=== PATIENT | female | born 1950 | race Caucasian/White ===

== ENCOUNTER 2021-01-12 09:17 | Emergency (ER) | payer MEDICARE, OTHER ==
[~2021-01-12] VITALS: Ht 157.5 cm; Wt 61.2 kg
[2021-01-12] MEDS ORDERED: TETANUS/DIPHTHERIA TOX ADULT 0.5 ML SYR IM STA (09:49)
[2021-01-12] MEDS ORDERED: LIDOCAINE HCL 2% LOCAL 20 ML VIAL INJ STA (09:49)
[2021-01-12] MEDS ORDERED: ACETAMINOPHEN500 MG PO (09:54)
[2021-01-12] MEDS ORDERED: CLINDAMYCIN HC150 MG PO (09:54)
[2021-01-12] MEDS ORDERED: TETANUS/DIPHTHERIA TOX ADULT 0.5 ML SYR ONE (10:31)
== END 2021-01-12 11:12 | disposition home or self-care (01) ==
LOC: FSED 09:36
DX: S05.41XA Penetrating wound of orbit with or without foreign body, right eye, initial encounter (principal); S80.211A Abrasion, right knee, initial encounter; W01.0XXA Fall on same level from slipping, tripping and stumbling without subsequent striking against object, initial encounter; Y93.02 Activity, running; Y92.89 Other specified places as the place of occurrence of the external cause; E78.5 Hyperlipidemia, unspecified; Z98.0 Intestinal bypass and anastomosis status
CPT/HCPCS: 90471; 90714; 99283

== ENCOUNTER 2021-01-22 14:15 | Emergency (ER) | payer MEDICARE ==
[~2021-01-22] VITALS: Ht 157.5 cm; Wt 62.4 kg
[~2021-01-22 14:15] MED LIST: ACETAMINOPHEN500 MG PO; CLINDAMYCIN HC150 MG PO
[2021-01-22] MEDS ORDERED: OMEPRAZOLE40 MG PO (16:35)
[2021-01-22] MEDS ORDERED: CRESTOR10 MG PO (16:35)
== END 2021-01-22 14:35 | disposition home or self-care (01) ==
LOC: FSED 14:33
DX: Z48.02 Encounter for removal of sutures (principal)
CPT/HCPCS: S0630

== ENCOUNTER 2022-04-15 12:53 | Inpatient (IN) | payer MEDICARE ==
[~2022-04-15] VITALS: Ht 157.5 cm; Wt 62.1 kg
[~2022-04-15 12:53] MED LIST changes: +CRESTOR10 MG PO; +OMEPRAZOLE40 MG PO
[2022-04-15] MEDS ORDERED: ONDANSETRON HCL INJ 2MG/ML 2ML 2 MG/ML VIAL IV STA ×2 (13:54→15:12)
[2022-04-15] MEDS ORDERED: SODIUM CHLORIDE 0.9% 1000ML 1,000 ML IV SCH ×3 (14:00→18:45)
[2022-04-15] MEDS ORDERED: KETOROLAC TROMETHAMINE 30 MG/ML VIAL IV STA (14:02)
[2022-04-15] MEDS ORDERED: KETOROLAC TROMETHAMINE 30 MG/ML VIAL ONE (14:43)
[2022-04-15] MEDS ORDERED: ONDANSETRON HCL INJ 2MG/ML 2ML 2 MG/ML VIAL ONE ×2 (14:43→15:28)
[2022-04-15] MEDS ORDERED: CEFTRIAXONE 1 GM VIAL ONE (16:44)
[2022-04-15] MEDS ORDERED: PROMETHAZINE 25MG/ NS 50ML (IV) IV ONE (16:45)
[2022-04-15] MEDS ORDERED: PROMETHAZINE HCL (IM) 25 MG/ML VIAL IM ONE (16:54)
[2022-04-15] MEDS ORDERED: SODIUM CHLORIDE 0.9% 1000ML 1,000 ML ONE ×2 (16:54→21:47)
[2022-04-15] MEDS ORDERED: ONDANSETRON HCL INJ 2MG/ML 2ML 2 MG/ML VIAL IV PRN (18:45)
[2022-04-15] MEDS ORDERED: HYDROMORPHONE 2MG/ML 2 MG/ML ML IV PRN (18:45)
[2022-04-15] MEDS ORDERED: KETOROLAC TROMETHAMINE 30 MG/ML VIAL IV PRN (19:30)
[2022-04-15] MEDS ORDERED: PROMETHAZINE 25MG/ NS 50ML (IV) IV PRN (19:30)
[2022-04-15 21:08] VITALS: BP 112/70
[2022-04-15] MEDS: TAMSULOSIN HCL 0.4 MG CAP PO SCH (21:38)
[2022-04-15] MEDS ORDERED: LETROZOLE2.5 MG PO (21:51)
[2022-04-15] MEDS ORDERED: ROSUVASTATIN CA10 MG PO (21:51)
[2022-04-15] MEDS ORDERED: FAMOTIDINE40 MG PO (21:51)
[2022-04-15] MEDS ORDERED: MELOXICAM7.5 MG PO (21:51)
[2022-04-15 22:01] VITALS: BP 112/70
[2022-04-15 22:03] VITALS: BP 112/70
[2022-04-15 23:59] VITALS: BP 115/73
[2022-04-16] VITALS (7 sets, daily range): BP systolic 96–119; BP diastolic 58–71
[2022-04-16] MEDS: SODIUM CHLORIDE 0.9% 1000ML 1,000 ML IV SCH ×2 (05:25→15:04)
[2022-04-16 07:38] LABS: BASOPHILS % 0.5 % (0.0-1.0); EOSINOPHILS % 0.3 % (0.0-6.0); HEMATOCRIT 39.2 % (34.2-44.1); HEMOGLOBIN 12.7 g/dL (12.0-16.0); LYMPHOCYTES # (AUTO) 1.1 (1.0-3.2); LYMPHOCYTES % 12.3 % (18.0-39.1); MEAN CORPUSCULAR HEMOGLOBIN 30.8 pg (28-32); MEAN CORPUSCULAR HGB CONC 32.4 g/dL (31-35); MEAN CORPUSCULAR VOLUME 94.9 fL (81-99); MONOCYTES % 10.9 % (4.4-11.3); NEUTROPHILS # (AUTO) 6.7 (2.1-6.9); NEUTROPHILS % 75.8 % (38.7-80.0); PLATELET COUNT 217 x10e3/uL (140-360); RED BLOOD COUNT 4.13 x10e6/uL (3.6-5.1); RED CELL DISTRIBUTION WIDTH 11.5 % (11.7-14.4)
[2022-04-16 08:42] LABS: ALBUMIN 2.9 g/dL (3.5-5.0); ALBUMIN/GLOBULIN RATIO 1.2 (0.8-2.0); ANION GAP 9.2 mmol/L (8-16); CALCIUM 7.9 mg/dL (8.4-10.2); CREATININE, SERUM 0.75 mg/dL (0.57-1.11); POTASSIUM 3.2 mmol/L (3.5-5.1)
[2022-04-16] MEDS ORDERED: MELOXICAM 7.5 MG TAB PO PRN (10:30)
[2022-04-16] MEDS ORDERED: POTASSIUM CHLORIDE 10MEQ EA PO ONE (11:15)
[2022-04-16] MEDS: TAMSULOSIN HCL 0.4 MG CAP PO SCH (21:37)
[2022-04-17] VITALS: BP 105/69
[2022-04-17] MEDS: SODIUM CHLORIDE 0.9% 1000ML 1,000 ML IV SCH ×3 (00:39→16:30)
[2022-04-17 04:00] VITALS: BP 116/83
[2022-04-17 05:44] LABS: BASOPHILS % 0.4 % (0.0-1.0); EOSINOPHILS # (AUTO) 0.1 (0.0-0.4); HEMOGLOBIN 13.6 g/dL (12.0-16.0); LYMPHOCYTES # (AUTO) 0.8 (1.0-3.2); LYMPHOCYTES % 16.7 % (18.0-39.1); MEAN CORPUSCULAR HEMOGLOBIN 30.6 pg (28-32); MEAN CORPUSCULAR HGB CONC 32.4 g/dL (31-35); MEAN CORPUSCULAR VOLUME 94.4 fL (81-99); MONOCYTES # (AUTO) 0.5 (0.2-0.8); MONOCYTES % 9.8 % (4.4-11.3); NEUTROPHILS # (AUTO) 3.2 (2.1-6.9); NEUTROPHILS % 69.9 % (38.7-80.0); PLATELET COUNT 248 x10e3/uL (140-360); RED BLOOD COUNT 4.45 x10e6/uL (3.6-5.1); RED CELL DISTRIBUTION WIDTH 11.3 % (11.7-14.4)
[2022-04-17 06:12] LABS: ANION GAP 13.5 mmol/L (8-16); CALCIUM 8.6 mg/dL (8.4-10.2); CREATININE, SERUM 0.68 mg/dL (0.57-1.11); POTASSIUM 3.5 mmol/L (3.5-5.1)
[2022-04-17] MEDS ORDERED: PANTOPRAZOLE SOD 40 MG TABEC PO SCH (07:30)
[2022-04-17] MEDS ORDERED: CRESTOR 10MG PO SCH (09:00)
[2022-04-17] MEDS ORDERED: FAMOTIDINE 20 MG TAB PO SCH (09:00)
[2022-04-17] MEDS ORDERED: NON-FORMULARY MEDICATION (Letrozole 2.5 MG) PO SCH (09:00)
[2022-04-17] MEDS ORDERED: SIMVASTATIN 40 MG TAB PO SCH (09:00)
[2022-04-17 09:55] VITALS: BP 121/91
[2022-04-17 10:58] VITALS: BP 121/91
[2022-04-17] MEDS ORDERED: ACETAMINOPHEN/CODEINE 300MG - 30MG TAB PO PRN (13:30)
[2022-04-17] MEDS ORDERED: PHENAZOPYRIDINE HCL 100 MG TAB PO PRN (13:30)
[2022-04-17] MEDS ORDERED: IOPAMIDOL 610MG/1ML 300 MG/ML VIAL IV ONE ×2 (13:32→14:07)
[2022-04-17 14:17] VITALS: BP 125/72
[2022-04-17] MEDS ORDERED: OXYBUTYNIN CHLORIDE 5 MG TAB PO SCH (15:00)
[2022-04-17] MEDS ORDERED: TYLENOL 3 PO (16:22)
[2022-04-17] MEDS ORDERED: DITROPAN XL5 MG PO (16:23)
[2022-04-17 17:12] VITALS: BP 111/55
[2022-04-18] MEDS ORDERED: DEXAMETHASONE SOD PHOS INJ 4 MG/ML SDV ONE (12:58)
[2022-04-18] MEDS ORDERED: SEVOFLURANE INHAL SOLN 250 ML PEN BTL ONE (12:58)
[2022-04-18] MEDS ORDERED: ONDANSETRON HCL INJ 2MG/ML 2ML 2 MG/ML VIAL ONE (12:58)
[2022-04-18] MEDS ORDERED: LIDOCAINE HCL 2% LOCAL INJ 5 ML SDV VIAL INJ ONE (12:58)
[2022-04-18] MEDS ORDERED: PROPOFOL IV EMULSION 10 MG/ML 20 ML VIAL ONE (12:58)
[2022-04-18] MEDS ORDERED: POVIDONE IODINE 0.05% 0.05 % ML PO ONE (12:58)
== END 2022-04-17 17:33 | disposition home or self-care (01) | DRG 661 ==
LOC: FSED 13:03 → UNDOADMOB 18:46 → ERHOLD 18:46 → MED/SURG 20:55 → OBSVTOIN 04-16 07:33
PROC: BT141ZZ Fluoroscopy of Kidneys, Ureters and Bladder using Low Osmolar Contrast (ICD-10-PCS; 2022-04-17)
PROC: 0TC68ZZ Extirpation of Matter from Right Ureter, Via Natural or Artificial Opening Endoscopic (ICD-10-PCS; 2022-04-17)
PROC: 0T768DZ Dilation of Right Ureter with Intraluminal Device, Via Natural or Artificial Opening Endoscopic (ICD-10-PCS; principal; 2022-04-17 13:25)
PROC: 0T778ZZ Dilation of Left Ureter, Via Natural or Artificial Opening Endoscopic (ICD-10-PCS; 2022-04-17 13:25)
DX: N13.2 Hydronephrosis with renal and ureteral calculous obstruction (principal); N13.9 Obstructive and reflux uropathy, unspecified; K21.9 Gastro-esophageal reflux disease without esophagitis; N39.46 Mixed incontinence; Z85.3 Personal history of malignant neoplasm of breast; E78.5 Hyperlipidemia, unspecified; R31.29 Other microscopic hematuria; N95.2 Postmenopausal atrophic vaginitis; N36.41 Hypermobility of urethra; N81.4 Uterovaginal prolapse, unspecified; R80.9 Proteinuria, unspecified
CPT/HCPCS: 36415; 74018; 74176; 74420; 80048; 80053; 80076; 81003; 83970; 84550; 85025; 87086; 88300; 99284; C1758; G0378; J0696; J1100; J1885; J2001; J2405; J2550; J7030

== ENCOUNTER → 2022-06-17 | Day surgery (SDC) | payer MEDICARE ==
[2022-05-26 12:12] LABS: BASOPHILS # (AUTO) 0.1 (0.0-0.1); BASOPHILS % 1.1 % (0.0-1.0); EOSINOPHILS # (AUTO) 0.2 (0.0-0.4); EOSINOPHILS % 3.5 % (0.0-6.0); HEMATOCRIT 42.3 % (34.2-44.1); HEMOGLOBIN 13.1 g/dL (12.0-16.0); LYMPHOCYTES # (AUTO) 0.7 (1.0-3.2); LYMPHOCYTES % 10.2 % (18.0-39.1); MEAN CORPUSCULAR HEMOGLOBIN 29.8 pg (28-32); MEAN CORPUSCULAR VOLUME 96.4 fL (81-99); MONOCYTES # (AUTO) 0.7 (0.2-0.8); MONOCYTES % 10.4 % (4.4-11.3); NEUTROPHILS # (AUTO) 4.7 (2.1-6.9); NEUTROPHILS % 73.9 % (38.7-80.0); PLATELET COUNT 289 x10e3/uL (140-360); RED BLOOD COUNT 4.39 x10e6/uL (3.6-5.1); RED CELL DISTRIBUTION WIDTH 11.9 % (11.7-14.4)
[2022-05-26 12:34] LABS: ANION GAP 12.3 mmol/L (8-16); CALCIUM 9.4 mg/dL (8.4-10.2); CREATININE, SERUM 0.82 mg/dL (0.57-1.11); POTASSIUM 3.3 mmol/L (3.5-5.1)
[~2022-06-17] MED LIST changes: +AMOXICILLIN250 MG PO; +AZO1 EACH PO; +CEFTRIAXONE 1 GM VIAL ONE; +DEXAMETHASONE SOD PHOS INJ 4 MG/ML SDV ONE; +DITROPAN XL5 MG PO; +FAMOTIDINE40 MG PO; +FENTANYL CITRATE/PF 100MCG/2 ML INJ ONE; +GENTAMICIN 80MG/NS 100 ML 200 ML IV ONE; +KETOROLAC TROMETHAMINE 30 MG/ML VIAL ONE; +LETROZOLE2.5 MG PO; +LIDOCAINE HCL 2% LOCAL INJ 5 ML SDV VIAL INJ ONE; +MELOXICAM7.5 MG PO; +MULTI-VITAMIN1 EACH PO; +ONDANSETRON HCL INJ 2MG/ML 2ML 2 MG/ML VIAL ONE; +PHENAZOPYRIDINE HCL 100 MG TAB ONE; +POVIDONE IODINE 0.05% 0.05 % ML PO ONE; +PROPOFOL IV EMULSION 10 MG/ML 20 ML VIAL ONE; +ROSUVASTATIN CA10 MG PO; +SEVOFLURANE INHAL SOLN 250 ML PEN BTL ONE; +TYLENOL 3 PO; +ZINC PO
[2022-06-17 14:30] VITALS: BP 126/61
== END | disposition home or self-care (01) ==
LOC: OR 08:40
PROVIDERS: ATTEND Urology
DX: N20.0 Calculus of kidney (principal); N20.1 Calculus of ureter; N13.30 Unspecified hydronephrosis; Z46.6 Encounter for fitting and adjustment of urinary device; N28.89 Other specified disorders of kidney and ureter; N81.10 Cystocele, unspecified; N81.6 Rectocele; N36.41 Hypermobility of urethra; N95.2 Postmenopausal atrophic vaginitis; N39.3 Stress incontinence (female) (male); R80.9 Proteinuria, unspecified; N81.89 Other female genital prolapse; E78.00 Pure hypercholesterolemia, unspecified; K57.90 Diverticulosis of intestine, part unspecified, without perforation or abscess without bleeding; Z01.810 Encounter for preprocedural cardiovascular examination; Z01.812 Encounter for preprocedural laboratory examination; Z01.818 Encounter for other preprocedural examination; Z79.899 Other long term (current) drug therapy; Z85.3 Personal history of malignant neoplasm of breast; Z92.3 Personal history of irradiation
CPT/HCPCS: 36415; 52351; 71046; 74018 ×2; 74420; 80048; 84550; 85025; 87086; 93005; C1769; J0696; J1100; J1580; J1885; J2001; J2405; J2704; J3010